=== PATIENT | female | born 1980 | race Caucasian/White ===

== ENCOUNTER 2023-05-01 15:01 | Emergency (ER) | payer OTHER, BC, SELFPAY ==
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
[2023-05-01 15:24] VITALS: BP 108/75; PULSE 64; RESP 18; TEMP 36.9; O2SAT 99
[2023-05-01] MEDS: ACETAMINOPHEN 500 MG TABLET 1000 MG PO (15:29)
[2023-05-01] MEDS: Please add drug allergy info to patient profile. 1 EACH XX (15:31)
[2023-05-01 17:25] VITALS: BP 108/72; PULSE 70; RESP 20; O2SAT 99
== END 2023-05-01 17:30 | disposition home or self-care (01) ==
PROVIDERS: Emergency Provider Preventive Medicine Aerospace Medicine
DX: S06.0X0A Concussion without loss of consciousness, initial encounter (principal); S19.9XXA Unspecified injury of neck, initial encounter; M16.0 Bilateral primary osteoarthritis of hip; V43.52XA Car driver injured in collision with other type car in traffic accident, initial encounter
CPT/HCPCS: 70450; 72125; 72170; 99284; A9270